=== PATIENT | female | born 2000 | race Caucasian/White ===

== ENCOUNTER 2025-10-24 00:54 | Emergency (ER) | payer OTHER, SELFPAY ==
[2025-10-24 00:59] VITALS: BP 112/80
--- NOTE | 2025-10-24 05:12 | ED.GENMED ---
History of Present Illness
General
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
Source: patient
Exam Limitations: none
Time Seen by Provider: 10/24/25 01:27
Nursing documentation reviewed up to this point in time: agreed with
History of Present Illness
History of Present Illness:
Note:
CHIEF COMPLAINT(S)
Acute pelvic pain following suspected displacement of intrauterine device (IUD).
HISTORY OF PRESENT ILLNESS
The patient is a 25-year-old female who presents with acute pelvic pain, suspecting issues with her intrauterine device (IUD). She describes the onset of pain as severe and sharp initially, which has now stabilized to a moderate cramping sensation.
The pain began acutely, suggesting a possible displacement or other issue with the IUD, which has been in place for six years. The patient reports an attempt several months ago to visit an OB-[employer]INESS [employer]NER for an ultrasound due to irregular spotting
persisting for weeks; however, the procedure was not completed due to scheduling conflicts. No fever, chills, or vaginal discharge has been noted.
PLAN
- Perform a pelvic ultrasound to assess the position and status of the IUD. Ensure the patients bladder is full for optimal imaging.
- Provide the patient with water to facilitate bladder filling for the ultrasound.
- Schedule follow-up [employer] consultation for reassessment and management based on ultrasound findings.
DIFFERENTIAL DIAGNOSIS
The Differential Diagnosis includes, in no particular order and is not limited to:
- IUD displacement or perforation
- Pelvic inflammatory disease
- Ovarian cysts
- Endometriosis
- Urinary tract infection
- Ectopic
- Appendicitis
- Uterine fibroids
- Bowel obstruction
- Acute pelvic pain secondary to other gynecological causes
Disposition:
SUMMARY OF ENCOUNTER
The patient, a 25-year-old female, presented with concerns regarding a low-lying intrauterine device (IUD). Upon performing a pelvic ultrasound, it was independently interpreted that the IUD was malpositioned. After a discussion with the OB-BUSINESS PLANNER, the
decision was made to remove the IUD in the emergency department with the patients consent. The removal process was successful, and the patient experienced some pain during the procedure, which subsided afterwards. Minimal bleeding was noted
post-procedure.
PLAN
The patient was advised to anticipate possible moderate to heavy menstrual-like bleeding for up to a week. She was instructed to follow up with an OB-BUSINESS PLANNER as needed.
PROCEDURES
Removal of malpositioned intrauterine device (IUD) with patient consent.
PATIENT EDUCATION AND COUNSELING
The patient was informed about the potential for moderate to heavy period-like bleeding for up to a week following the procedure.
FOLLOW-UP INSTRUCTIONS
The patient was advised to follow up with her OB-BUSINESS PLANNER as needed.
MEDICAL DECISION MAKING
- Number and Complexity of Problems Addressed: Acute concern due to potential IUD displacement.
- Data:
Category 1
My independent interpretation of the pelvic ultrasound indicated a malpositioned IUD.
Category 3
Discussion of management with an OB-BUSINESS PLANNER regarding the removal of the IUD.
DIAGNOSIS
Malpositioned intrauterine contraceptive device (IUD) - ICD-10: T83.32XA
Phy Exam
Physical Exam
Physical Exam:
.
Course
Orders/Labs/Results
Orders:
Orders
10/24/25 02:49
US Pelvis Only (non-obstetric) Urgent
Comment:
Reason For Exam: pelvic pain, suspected iud dislodgement
Vital Signs
Initial and Last Documented VS:
Initial Vital Signs
Temp Pulse Resp BP Pulse Ox
97.5 F 106 16 112/80 100
10/24/25 00:59 10/24/25 00:59 10/24/25 00:59 10/24/25 00:59 10/24/25 00:59
Last Documented Vital Signs
Temp Pulse Resp BP Pulse Ox
97.5 F 106 16 112/80 100
10/24/25 00:59 10/24/25 00:59 10/24/25 00:59 10/24/25 00:59 10/24/25 05:16
*Pulse Oximetry
SaO2: 100
Oxygen Mode of Delivery: Room air
Patient hypoxic: no
*Critical Care Note
Total Time (30-74mins, 75-104mins- exclusive of procedures): Not Applicable
ED Attending Note
-
Portions of this chart may have been created with voice recognition software.� Occasional wrong word or��sound alike� substitutions may have occurred due to the inherent limitations of voice recognition software.
Discharge Plan
Departure
Patient Disposition: Home (Routine Discharge)
Date of Disposition: 10/24/25
Time of Disposition: 05:16
Patient with high blood pressure during this ER visit?: No
Condition: Good
Discharge Problem:
Dislodged IUD, Pelvic pain
Instructions: IUD removal, Pelvic pain - ED (DC)
Prescriptions:
No Action
cephalexin 500 mg capsule
500 mg PO BID 10 Days Qty: 20 0RF
cefdinir 300 mg capsule
300 mg PO BID Qty: 14 0RF
Referrals:
Kinsey Jordan MD [Active, Gynecology] - As needed
Activity Restrictions/Additional Instructions:
As discussed, you will experience some bleeding today. Over the next week you may experience 'period like bleeding that could be moderate to heavy'. This is normal. If you are concerned please return to the ER or follow-up with [facility]
Thank You for choosing [facility].
It was a pleasure meeting you and taking part in your care. We hope for your continued healing and wellness.
Please read discharge instructions in their entirety. However, they are for general education and may not describe your exact diagnosis at discharge. Information on your ER visit and medical conditions were discussed with you along with appropriate
follow up information...
If indicated, please take your medications as instructed and indicated on discharge paperwork.
Please schedule a follow up appointment as directed. Call to schedule an appointment
Please return to the emergency department with ANY change in, persisting, or worsening of symptoms. If any of your symptoms do not improve, or persist, or become more severe within 6-12 hours, please return to the emergency department for further
care.
Please return to the emergency department if you develop a headache, neck pain/stiffness, fever greater than 100.4F, chest pain, shortness of breath, persistent nausea, vomiting, slurred speech, difficulty walking, numbness/tingling, weakness, signs
of infection or any other symptoms that are worrisome to you.
If you have any questions or concerns please do not hesitate to call the Hospital at .
Interventions
Interventions:
*General Assessment Last Done: 10/24/25 01:46
*Neglect/Abuse Screening Last Done: 10/24/25 00:59
*ED COVID-19 Vaccine History Last Done: 10/24/25 00:59
*ED Influenza Vaccine History Last Done: 10/24/25 00:59
[facility] Fall Risk Assessment Tool Last Done: 10/24/25 01:46
ED-Female Genitourinary Assessment Last Done: 10/24/25 01:46
Discharge Date and Time
Print Language: ITALIAN
[2025-10-24 05:22] VITALS: BP 95/65
== END 2025-10-24 05:23 | disposition home or self-care (01) ==
LOC: EMR 00:54
PROVIDERS: EMERGENCY PHYSICIAN Student in an Organized Health Care Education/Training Program
DX: T83.32XA Displacement of intrauterine contraceptive device, initial encounter (principal); R10.20 Pelvic and perineal pain unspecified side; Y92.9 Unspecified place or not applicable
CPT/HCPCS: 99284; 76856